=== PATIENT | female | born 1955 | race Caucasian/White ===

== ENCOUNTER 2016-09-03 07:06 | Outpatient (CLI) | payer BC | END 2016-09-03 07:07 | disposition home or self-care (01) | DX: R35.0 Frequency of micturition (principal) ==

== ENCOUNTER 2016-09-23 09:59 | Outpatient (CLI) | payer BC ==
--- NOTE | 2016-10-02 15:36 | Mammography Report ---
DIGITAL SCREENING MAMMOGRAM: 09/23/2016 CLINICAL INDICATION: A 61-year-old, for screening. COMPARISON: Films from [place], [place] dated 08/13/2010, 01/15/2009. TECHNIQUE: Routine CC and MLO projections were obtained of the breasts. FINDINGS: The breasts demonstrate scattered fibroglandular densities bilaterally. Circumscribed nodu le in the right upper posterior central breast is stable. A few coarse, typically benign calcificatio ns are present. No suspicious masses, clustered microcalcifications, or regions of architectural dist ortion are identified. IMPRESSION: BENIGN FINDINGS. RECOMMENDATION: ROUTINE ANNUAL SCREENING UNLESS OTHERWISE CLINICALLY INDICATED. BIRADS CATEGORY 2-BENIGN FINDINGS. STANDARD QUALIFYING STATEMENTS 1. This examination was reviewed with the aid of Computer-Aided Detection (CAD). 2. A negative or benign imaging report should not delay biopsy if clinically suspicious findings are present. Consider surgical consultation if warranted. More than 5% of cancers are not identified by i maging. 3. Dense breasts may obscure an underlying neoplasm. JOB #: [id number] EXT JOB #:[id number]
== END 2016-09-23 10:00 | disposition home or self-care (01) ==
LOC: DI.N 09:59
PROVIDERS: ATTEND Physician Assistant Medical
DX: Z12.31 Encounter for screening mammogram for malignant neoplasm of breast (principal)
CPT/HCPCS: 77067